=== PATIENT | female | born 1975 | race Caucasian/White ===

== ENCOUNTER 2017-10-07 13:27 | Emergency (ER) | payer OTHER ==
[~2017-10-07] VITALS: Ht 152.4 cm; Wt 90.4 kg
[~2017-10-07 13:27] MED LIST: MOTRIN600 MG PO; PERCOCET 5/31 TABLET PO; TYLENOL EXTRA500 MG PO
[2017-10-07 13:56] LABS: HEMATOCRIT 40.7 % (36.0-46.0); HEMOGLOBIN 13.5 G/DL (11.9-15.5); MCH 27.9 PG (29.0-34.0); MCHC 33.2 G/DL (30.0-36.0); MCV 84.1 FL (83-99); PLATELET COUNT 291 K/uL (156-360); RBC DIS.WIDTH-CV 12.9 % (11.8-14.6); RBC DIS.WIDTH-SD 39.1 % (39-53); RED BLOOD COUNT 4.84 M/uL (3.80-5.20); WHITE BLOOD COUNT 11.1 K/uL (4.1-10.2)
[2017-10-07 14:06] LABS: CHLORIDE 105 mEq/L (99-109); POTASSIUM 5.1 mEq/L (3.7-5.4); SODIUM 140 mEq/L (136-147)
[2017-10-07 14:07] LABS: GLUCOSE 110 mg/dL (70-99)
[2017-10-07 14:11] LABS: GFR ESTIMATE (CALCULATED) > 59 mL/min/
[2017-10-07 14:12] LABS: UREA NITROGEN (BUN) 16 mg/dL (9-23)
[2017-10-07] MEDS ORDERED: DICLOFENAC SOD100 MG PO (14:17)
[2017-10-07 14:18] LABS: TROP-I INTERPRETATION NEGATIVE; TROPONIN-I < 0.01 ng/mL (0.0-0.30)
[2017-10-07] MEDS ORDERED: ATARAX,VISTARIL25 MG PO (14:18)
[2017-10-07 14:46] LABS: ALBUMIN 4.2 g/dL (3.2-4.8)
[2017-10-07 14:49] LABS: TOTAL PROTEIN 8.4 g/dL (6.4-8.3)
[2017-10-07 14:51] LABS: TOTAL BILIRUBIN 0.4 mg/dL (0.0-1.0)
[2017-10-07 14:52] LABS: ALKALINE PHOSPHATASE 64 IU/L (3-129)
[2017-10-07 14:54] LABS: AST (GOT) 36 IU/L (2-34); DIRECT BILIRUBIN 0.1 mg/dL (0.0-0.3)
[2017-10-07 14:55] LABS: ALT (GPT) 27 IU/L (3-49)
[2017-10-07 15:59] VITALS: BP 128/87
== END 2017-10-07 16:00 | disposition home or self-care (01) ==
LOC: EME 13:27
PROVIDERS: Internal Medicine Pulmonary Disease
DX: R07.9 Chest pain, unspecified (principal); R10.9 Unspecified abdominal pain; Z90.49 Acquired absence of other specified parts of digestive tract
CPT/HCPCS: 71046; 80048; 80076; 84484; 85027; 93005; 99281; 99284